=== PATIENT | female | born 2000 | race Caucasian/White ===

== ENCOUNTER 2024-02-27 22:40 | Emergency (ER) | payer BC, SELFPAY ==
[2024-02-27 22:40] VITALS: BMI 18.2
[2024-02-27 22:42] VITALS: BP 111/78
[2024-02-27 22:57] LABS: Urine Albumin Trace (Neg - Trace); Urine Bilirubin Negative (Negative); Urine Character Clear (Clear); Urine Color Yellow; Urine Glucose Negative (Negative); Urine Ketone Negative (Negative); Urine Leukocyte Trace (Negative); Urine Nitrite Negative (Negative); Urine Occult Blood Negative (Negative); Urine Urobilinogen Negative (Neg - 1+)
[2024-02-27 22:58] LABS: HCG, Urine Qualitative Screen Negative
[2024-02-27 23:06] LABS: Urine Mucus Moderate; Urine Squamous Cell 16-20 /LPF (Few)
[2024-02-27 23:08] LABS: Urine Bacteria Few (Negative); Urine Red Blood Cell 0-2 /HPF (0-2)
[2024-02-28] VITALS: BP 112/72
--- NOTE | 2024-02-28 01:31 | ED.GENMED ---
History of Present Illness
General
Chief Complaint: Abdominal Pain
Source: patient
Exam Limitations: none
Time Seen by Provider: 02/28/24 01:07
History of Present Illness
History of Present Illness:
This is a 23 year old female that comes in with c/o lower abd pain. States that she has had diarrhea for the past 5-6 days. States that her pain is getting worse. States that last week it went away and then came back. State that it seems to be worse
in the morning for 1-2 hours and then goes away. States that it is worse after she eats or sits on the toilet. States that the past 2 days have been the worse. Denies any fever, chills, chest pain, SOB, abd pain, nausea, vomiting, headache,
dizziness, urinary burning.
Past History
Past History
ED Past Medical History: Negative Asthma, HTN, Hypercholesterolemia or NIDDM
ED Past Surgical History: None
Social History
Tobacco: Non-smoker
Alcohol: Occasional
Personal: Single
Living: with family
Review of Systems
Review of Systems
All Other Systems: ROS reviewed and negative except as documented in HPI and ROS
Constitutional: Reports no symptoms; Denies fever or chills
EENT: Reports no symptoms
Respiratory: Denies cough or trouble breathing
Cardiac: Reports no symptoms; Denies chest pain
ABD/GI: Reports abdominal pain and diarrhea; Denies nausea or vomiting
: Reports no symptoms; Denies dysuria, frequency or urgency
Musculoskeletal: Reports no symptoms
Skin: Reports no symptoms
Neurological: Reports no symptoms; Denies dizzy or headache
Psychiatric: Reports no symptoms
Phy Exam
General Physical Exam
General Presentation: well appearing and no apparent distress
General age: appears stated age
General Skin: warm and dry
General Habitus: normal
General Mental: alert
General Hydration: appears well hydrated
ENT Exam
ENT Exam: TM's normal, pharynx normal and neck supple
Eye Exam
Eye Exam: EOMI
Cardiovascular Exam
Cardiovascular Exam: regular rate/rhythm, no edema, no murmur and normal peripheral pulses
Pulmonary Exam
Pulmonary Exam: lungs clear, no respiratory distress, no rales, chest non tender, no crackles, no rhonchi, no wheezing and no cough
Gastrointestinal Exam
Gastrointestinal Exam: normal bowel sounds, soft, no organomegaly, no pulsatile mass, non distended and tender (Left lower abd tenderness with palpation)
Musculoskeletal Exam
Musculoskeletal Exam: full ROM and no edema
Skin Exam
Skin Exam: normal color, warm/dry, no rash and no petechia
Psychiatric Exam
Psychiatric Exam: normal mood/affect
Course
Orders/Labs/Results
Orders:
Orders
02/27/24 22:44
Test Result ONCE
02/27/24 22:50
Urinalysis Reflex To Culture Urgent
Date Specimen was Collected: 02/27/24
Time Specimen was Collected: 22:44
Urine Microscopic Reflex Cult Urgent
Urine,Hcg qualitative screen [HCG, Urine Qualitative Screen] Urgent
Date Specimen was Collected: 02/27/24
Time Specimen was Collected: 22:44
02/28/24 01:25
0.9% Sodium Chloride 1000 ml [Nss] 1,000 ml IV BOLUS
Iohexol [Omnipaque] See Protocol PO NOW STA
02/28/24 01:26
CT Abd/pel W Iv And Oral Contr Urgent
Comment:
Reason For Exam: left sided lower abd tenderness
02/28/24 01:31
STOOL [C difficile Antigen & Toxins] Urgent
SARA Source: Feces/Stool
Specimen Description:
Stool Culture Urgent
SARA Source: Feces/Stool
Specimen Description:
Stool For WBC Urgent
SARA Source: Feces/Stool
Specimen Description:
02/28/24 01:46
Complete Blood Count/With Diff Urgent
Comprehensive Metabolic Panel Urgent
TSH Reflex To Free T4 Urgent
Abnormal Lab Results
02/27/24 02/28/24
22:50 01:46
MCHC 32.7 L g/dL
(33.0-37.0)
Absolute Monos (auto) 0.7 H 10^3/uL
(0.1-0.6)
Neutrophils % 41.0 L %
(42.2-75.2)
Monocytes % 14.4 H %
(1.7-9.3)
Total Bilirubin < 0.1 L mg/dl
(0.2-1.3)
Leukocyte Esterase Rfl Trace A
(Negative)
Urine Bacteria (Reflex) Few A
(Negative)
02/28/24 01:46
02/28/24 01:46
Urine negative for infection. HCG negative, Total bradley low. Otherwise normal labs.
Vital Signs
Initial and Last Documented VS:
Initial Vital Signs
Temp Pulse Resp BP Pulse Ox
98.4 F 70 18 111/78 100
02/27/24 22:42 02/27/24 22:42 02/27/24 22:42 02/27/24 22:42 02/27/24 22:42
Last Documented Vital Signs
Temp Pulse Resp BP Pulse Ox
98.4 F 62 17 115/73 99
02/27/24 22:42 02/28/24 00:00 02/28/24 00:00 02/28/24 01:48 02/28/24 01:48
MDM/Problems Addressed
Differential Diagnosis Includes:
Colitis, Diverticulitis, Ovarian cyst
MDM/Problems Addressed:
This is a 23 year old female that comes in with c/o lower abd pain. States that she has had diarrhea for the past 5-6 days. States that last week she had diarrhea and then it stopped. State that in the past 2 days her pain has gotten worse.
Will check labs. CT scan and given IV fluids.
Back into see patient. Explained that her Blood work is normal and her CT shows that she is constipated. Explained that the Liquid stool is going around the formed stool. Will give patient a bottle of Magnesium Citrate. Patient to increased her
water intake and follow up with the family doctor for recheck. PATIENT TO RETURN WITH INCREASED PAIN OR ANY OTHER CONCERNS.
Chronic conditions affecting care:
NA
Acute Exacerbation and/or Progression of Chronic Illness:
NA
*Radiology
Radiology exam reviewed: radiology read reviewed (CT- night hawk- Constipation without bowel obstruction or diverticulitis. The appendix is normal. Liver enlarged. NO cholecystitis or pancreatitis. No obstructing renal stones. Abdominal aorta is of
normal caliber. )
*Pulse Oximetry
Patient hypoxic: no
*EKG
Interpreted by ED Provider?: NA
Rate: EKG- N/A
*Neon Glass Blower Interpretation
Rate: Neon Glass Blower- N/A
*Critical Care Note
Total Time (30-74mins, 75-104mins- exclusive of procedures): Not Applicable
ED Attending Note
-
Portions of this chart may have been created with voice recognition software.� Occasional wrong word or��sound alike� substitutions may have occurred due to the inherent limitations of voice recognition software.
Discharge Plan
Departure
Patient Disposition: Home (Routine Discharge)
Date of Disposition: 02/28/24
Time of Disposition: 04:05
Patient with high blood pressure during this ER visit?: No
Condition: Good
Covid-19: Not Applicable
Discharge Problem:
Constipation
Instructions: Constipation, Adult (DC)
Referrals:
Cordelia Darby CRNP [Family Provider] - Follow up in 2-3 days
Activity Restrictions/Additional Instructions:
As discussed, your blood work is all normal. Your urine is negative for infection. Your CT shows that you are constipated. You have been given a bottle of Magnesium Citrate. Please drink the entire bottle. This may take up to 6 hours to work. It can
also cause abdominal cramping. Please increase your water intake to 8-8oz glasses daily. Follow up with the family doctor in the next 2-3 days for recheck. IF YOU HAVE INCREASED OR CHANGING ABD PAIN, OR YOU HAVE ANY OTHER CONCERNS PLEASE RETURN TO
THE EMERGENCY ROOM.
Interventions
Interventions:
*Risk Screen - Suicide Last Done: 02/27/24 22:42
*General Assessment Last Done: 02/27/24 22:42
*Neglect/Abuse Screening Last Done: 02/27/24 22:42
ED- Fall Risk Assessment Last Done: 02/28/24 02:18
*ED COVID-19 Vaccine History Last Done: 02/27/24 22:42
MS-Iocvsy-Tmqspuugxz Assessment Last Done: 02/28/24 02:18
Discharge Date and Time
Print Language: DOMINICAN
[2024-02-28] MEDS: OMNIPAQUE 50 ML PO (01:39)
[2024-02-28] MEDS: NSS 1000 IV (01:42)
[2024-02-28 01:48] VITALS: BP 115/73
[2024-02-28 02:07] LABS: % Basophils 0.4 % (0-2); % Eosinophils 1.4 % (0-6); % Immature Granulocytes 0.2 % (0-0.5); % Lymphocytes 42.6 % (20.5-51.1); % Monocytes 14.4 % (1.7-9.3); Absolute Eosinophils 0.1 10^3/uL (0-0.7); Absolute Lymphocytes 2.1 10^3/uL (1.2-3.4); Absolute Monocytes 0.7 10^3/uL (0.1-0.6); Absolute Neutrophils 2.1 10^3/uL (1.4-6.5); Hematocrit 37.3 % (37.0-47.0); Hemoglobin 12.2 g/dL (12.0-16.0); Mean Corp Hgb Conc. 32.7 g/dL (33.0-37.0); Mean Corpuscular Hgb 28.1 pg (27.0-31.0); Mean Corpuscular Volume 85.9 fL (81.0-99.0); Mean Platelet Volume 9.8 fL (7.4-10.4); Nucleated Red Blood Cells % 0 %; Platelet Count 232 10^3/uL (130-400); Red Blood Cell Count 4.34 10^6/uL (4.20-5.40); Red Cell Dist. Width 12.9 % (11.5-14.5)
[2024-02-28 02:08] LABS: ALT (SGPT) 16 U/L (0-35); AST (SGOT) 21 U/L (14-36); Albumin 4.4 g/dl (3.5-5.0); Alkaline Phosphatase 42 U/L (38-126); Blood Urea Nitrogen 12 mg/dl (7-17); Calcium 9.4 mg/dl (8.4-10.2); Carbon Dioxide 25 mmol/L (22-30); Chloride 104 mmol/L (98-107); Estimated Creatinine Clearance 89 ml/min; Glucose 93 mg/dl (70-99); Potassium 4.1 mmol/L (3.5-5.1); Sodium 138 mmol/L (135-145); Total Bilirubin < 0.1 mg/dl (0.2-1.3); Total Protein 6.8 g/dl (6.3-8.2); eGFR > 60.00
[2024-02-28 02:39] LABS: TSH Reflex To Free T4 3.93 uIU/ml (0.47-4.68)
[2024-02-28] MEDS: CITROMA 300 ML PO (04:22)
== END 2024-02-28 04:30 | disposition home or self-care (01) ==
LOC: EMR 22:40
PROVIDERS: Clinical Nurse Specialist Family Health; EMERGENCY PHYSICIAN Emergency Medicine; FAMILY PHYSICIAN Nurse Practitioner Family
DX: K59.00 Constipation, unspecified (principal)
CPT/HCPCS: 99282; 74177; 80053; 81003; 81015; 81025; 84443; 85025; Q9967